=== PATIENT | female | born 1990 | race American Indian/Alaskan Native ===

== ENCOUNTER 2017-04-09 18:32 | Emergency (ER) | payer MEDICAID, OTHER ==
[2017-04-09] MEDS ORDERED: NACL 0.9% 1000 ML 1,000 ML IV ONE (21:52)
[2017-04-09 22:36] LABS: Basophils % (Auto) 0.6 % (0.0-1.8); Eosinophils % (Auto) 0.6 % (0.0-4.3); Hematocrit 42.5 % (30.3-42.9); Hemoglobin 14.5 gm/dl (10.1-14.3); Mean Corpuscular HGB Conc 34 % (30-34); Mean Corpuscular Hemoglobin 32 pg (28-32); Mean Corpuscular Volume 94 fl (79-97); Platelet Count 376 K/mm3 (140-440); Red Blood Count 4.52 M/mm3 (3.65-5.03); Red Cell Distribution Width 12.1 % (13.2-15.2); White Blood Count 7.3 K/mm3 (4.5-11.0)
[2017-04-09 22:56] LABS: Alanine Aminotransferase 9 units/L (7-56); Albumin 4.3 g/dL (3.9-5); Albumin/Globulin Ratio 1.2 %; Alkaline Phosphatase 51 units/L (35-129); Anion Gap 20 mmol/L; Blood Urea Nitrogen 10 mg/dL (7-17); Calcium 9.3 mg/dL (8.4-10.2); Carbon Dioxide 21 mmol/L (22-30); Chloride 99.3 mmol/L (98-107); Glucose 89 mg/dL (65-100); Lipase 17 units/L (13-60); Potassium 3.8 mmol/L (3.6-5.0); Sodium 136 mmol/L (137-145); Total Protein 7.9 g/dL (6.3-8.2)
[2017-04-09 23:09] LABS: Bilirubin,Urine NEG (Negative); Blood,Urine SM (Negative); Ketones,Urine 80 mg/dL (Negative); Leukocyte Esterase,Urine NEG (Negative); Mucus,Urine 3+ /HPF; Nitrite,Urine NEG (Negative)
[2017-04-09] MEDS ORDERED: ZOFRAN IV ONE (23:12)
--- NOTE | 2017-04-09 23:12 | Emergency Department Report ---
ED HPI - General Chief complaint: Nausea/Vomiting/Diarrhea Stated complaint: ,VOMITING AND DIZZY Time Seen by Provider: 04/09/17 23:03 Source: patient, RN notes reviewed Mode of arrival: Ambulatory Limitations: No Limitations - History of Present Illness Initial comments: This is a 26-year-old female, the patient is previously unknown to me, she reports that she is 2, para 1, last menstrual period March 06. Patient reports a past medical history of hyperemesis, reports being seen at another hospital last night, reports having an ultrasound, and states that the ultrasound "showed everything was alright." Presents to the ER with a complaint of nausea, vomiting, weakness, unintentional weight loss. Reports multiple episodes of nonbloody, nonbilious emesis, unintentional weight loss, denies irritated obstructive urinary symptoms, reports her symptoms feel similar to prior episodes of hyperemesis. Patient further reports that her symptoms worsened when she eats, and they decrease with rest. -: Gradual Consistency: constant Improves with: rest Worsens with: eating Associated symptoms: nausea/vomiting, malaise, weakness. denies: vaginal bleeding, vaginal discharge, abdominal pain, dysuria, headache, vision changes Vaginal bleeding: none :: Yes OB History - Previous Pregnancies: hyperemesis Pre-kelvin care: followed by OB (Dr. Shipley) - Related Data Previous Rx's Medication Instructions Recorded Last Taken Type Azithromycin [Zithromax Z-TAMARA] 250 mg PO DAILY #6 tablet 09/29/15 Unknown Rx guaiFENesin/CODEINE [Robitussin AC] 10 ml PO Q6HR PRN #180 ml 09/29/15 Unknown Rx predniSONE [Deltasone] 40 mg PO QDAY #10 tab 09/29/15 Unknown Rx Dibucaine [Nupercainal] 28.4 gm RC QID PRN #1 oint...g. 05/04/16 Unknown Rx Doxylamine/Pyridoxine HCl 1 each PO QHS PRN #30 tablet. 04/10/17 Unknown Rx [Yaron Alexander 10-10 mg Tablet] Kristin Root [Kristin] 250 mg PO QID PRN #30 capsule 04/10/17 Unknown Rx Ondansetron [Zofran Odt] 4 mg PO QID PRN #20 tab.rapdis 04/10/17 Unknown Rx Vit W-Ca,Fe,FA(<1 mg) 1 each PO QDAY #30 tablet 04/10/17 Unknown Rx [ Vitamins] Allergies Allergy/AdvReac Type Severity Reaction Status Date / Time No Known Allergies Allergy Unverified 09/29/15 08:18 ED Review of Systems ROS: Stated complaint: ,VOMITING AND DIZZY Other details as noted in HPI Constitutional: malaise. denies: fever Eyes: denies: vision change ENT: denies: hearing loss Respiratory: denies: cough Cardiovascular: denies: palpitations Gastrointestinal: nausea, vomiting. denies: abdominal pain Genitourinary: denies: urgency, dysuria Musculoskeletal: denies: back pain Neurological: weakness ED Past Medical Hx - Past Medical History Previous Medical History?: Yes Additional medical history: Hyperemesis gravidarum with - Surgical History Past Surgical History?: Yes Additional Surgical History: LEEP, - Social History Smoking Status: Never Smoker Substance Use Type: Non Opiate Pain, Prescribed - Medications Home Medications: Home Medications Medication Instructions Recorded Confirmed Last Taken Type Azithromycin [Zithromax Z-TAMARA] 250 mg PO DAILY #6 tablet 09/29/15 Unknown Rx guaiFENesin/CODEINE [Robitussin AC] 10 ml PO Q6HR PRN #180 ml 09/29/15 Unknown Rx predniSONE [Deltasone] 40 mg PO QDAY #10 tab 09/29/15 Unknown Rx Dibucaine [Nupercainal] 28.4 gm RC QID PRN #1 oint...g. 05/04/16 Unknown Rx Doxylamine/Pyridoxine HCl 1 each PO QHS PRN #30 tablet.dr 04/10/17 Unknown Rx [Diclegis Dr 10-10 mg Tablet] Kristin Root [Kristin] 250 mg PO QID PRN #30 capsule 04/10/17 Unknown Rx Ondansetron [Zofran Odt] 4 mg PO QID PRN #20 tab.rapdis 04/10/17 Unknown Rx Vit W-Ca,Fe,FA(<1 mg) 1 each PO QDAY #30 tablet 04/10/17 Unknown Rx [ Vitamins] ED Physical Exam - General Limitations: No Limitations General appearance: alert, in no apparent distress - Head Head exam: Present: atraumatic, normocephalic - Eye Eye exam: Present: normal appearance, EOMI. Absent: nystagmus - ENT ENT exam: Present: normal exam, normal orophraynx, mucous membranes moist, normal external ear exam - Neck Neck exam: Present: normal inspection, full ROM. Absent: tenderness, meningismus - Respiratory Respiratory exam: Present: normal lung sounds bilaterally. Absent: respiratory distress, wheezes, rales, rhonchi, stridor, chest wall tenderness, accessory muscle use, decreased breath sounds, prolonged expiratory - Cardiovascular Cardiovascular Exam: Present: normal rhythm, tachycardia, normal heart sounds. Absent: systolic murmur, diastolic murmur, rubs, gallop - GI/Abdominal GI/Abdominal exam: Present: soft, normal bowel sounds. Absent: distended, tenderness, guarding, rebound, rigid, pulsatile mass - Extremities Exam Extremities exam: Present: normal inspection, full ROM, normal capillary refill. Absent: pedal edema, joint swelling, calf tenderness - Back Exam Back exam: Present: normal inspection, full ROM. Absent: tenderness, CVA tenderness (R), CVA tenderness (L), muscle spasm, paraspinal tenderness, vertebral tenderness - Neurological Exam Neurological exam: Present: alert, oriented X3, other (Extraocular movements intact. Tongue midline. No facial droop. Facial sensation intact to light touch in the V1, V2, V3 distribution bilaterally. 5 and 5 strength in 4 extremities.. Sensation is intact to light touch in 4 extremities.). Absent: motor sensory deficit - Psychiatric Psychiatric exam: Present: normal affect, normal mood - Skin Skin exam: Present: warm, dry, intact, normal color. Absent: rash ED Course Vital Signs 04/09/17 04/09/17 04/10/17 18:41 22:00 01:30 Temperature 99.6 F 98.6 F Pulse Rate 102 H 77 Respiratory 18 16 16 Rate Blood Pressure 104/70 Blood Pressure 112/66 [Right] O2 Sat by Pulse 99 99 99 Oximetry - Reevaluation(s) Reevaluation #1: 04/10/17 01:17 Differential diagnosis: Hyperemesis, dehydration, Assessment and plan: 26-year-old female who endorses unintentional weight loss, endorses nausea and vomiting, urinalysis demonstrates ketones, suggestive of nausea and vomiting of versus hyperemesis. Patient is afebrile, initially tachycardic, this has since resolved. Patient treated aggressively with D5 half-normal, Zofran, Reglan, and pyridoxine. Tachycardia resolved, patient able to tolerate liquid feeds, suitable for discharge at this point in time, she is resting quite comfortably right now, with no active vomiting noted. Patient has been reassessed by myself multiple times while she is here in the department. Reevaluation #2: 04/10/17 01:57 Tachycardia resolved. Patient able to tolerate liquid feeds and oral vitamin B6. Ultrasound confirms intrauterine . Patient will be discharged to follow-up. ED Medical Decision Making - Lab Data Result diagrams: 04/09/17 22:25 04/09/17 22:25 Vital Signs 04/09/17 04/09/17 04/10/17 18:41 22:00 01:30 Temperature 99.6 F 98.6 F Pulse Rate 102 H 77 Respiratory 18 16 16 Rate Blood Pressure 104/70 Blood Pressure 112/66 [Right] O2 Sat by Pulse 99 99 99 Oximetry Lab Results 04/09/17 04/09/17 04/09/17 Range/Units 22:25 22:25 23:27 WBC 7.3 (4.5-11.0) K/mm3 RBC 4.52 (3.65-5.03) M/mm3 Hgb 14.5 H (10.1-14.3) gm/dl Hct 42.5 (30.3-42.9) % MCV 94 (79-97) fl MCH 32 (28-32) pg MCHC 34 (30-34) % RDW 12.1 L (13.2-15.2) % Plt Count 376 (140-440) K/mm3 Lymph % (Auto) 18.4 (13.4-35.0) % Phillips % (Auto) 7.3 (0.0-7.3) % Eos % (Auto) 0.6 (0.0-4.3) % Baso % (Auto) 0.6 (0.0-1.8) % Lymph # 1.4 (1.2-5.4) K/mm3 Phillips # 0.5 (0.0-0.8) K/mm3 Eos # 0.0 (0.0-0.4) K/mm3 Baso # 0.0 (0.0-0.1) K/mm3 Seg Neutrophils % 73.1 H (40.0-70.0) % Seg Neutrophils # 5.4 (1.8-7.7) K/mm3 Sodium 136 L (137-145) mmol/L Potassium 3.8 (3.6-5.0) mmol/L Chloride 99.3 (98-107) mmol/L Carbon Dioxide 21 L (22-30) mmol/L Anion Gap 20 mmol/L BUN 10 (7-17) mg/dL Creatinine 0.5 L (0.7-1.2) mg/dL Estimated GFR > 60 ml/min BUN/Creatinine Ratio 20.00 % Glucose 89 (65-100) mg/dL Calcium 9.3 (8.4-10.2) mg/dL Total Bilirubin 0.70 (0.1-1.2) mg/dL AST 16 (5-40) units/L ALT 9 (7-56) units/L Alkaline Phosphatase 51 (35-129) units/L Total Protein 7.9 (6.3-8.2) g/dL Albumin 4.3 (3.9-5) g/dL Albumin/Globulin Ratio 1.2 % Lipase 17 (13-60) units/L HCG, Quant 35018 H (0-4) mIU/mL Urine Color (Yellow) Urine Turbidity (Clear) Urine pH (5.0-7.0) Ur Specific [place] (1.003-1.030) Urine Protein (Negative) mg/dL Urine Glucose (UA) (Negative) mg/dL Urine Ketones (Negative) mg/dL Urine Blood (Negative) Urine Nitrite (Negative) Urine Bilirubin (Negative) Urine Urobilinogen (<2.0) mg/dL Ur Leukocyte Esterase (Negative) Urine WBC (Auto) (0.0-6.0) /HPF Urine RBC (Auto) (0.0-6.0) /HPF U Epithel Cells (Auto) (0-13.0) /HPF Urine Mucus /HPF 04/09/17 Range/Units Unknown WBC (4.5-11.0) K/mm3 RBC (3.65-5.03) M/mm3 Hgb (10.1-14.3) gm/dl Hct (30.3-42.9) % MCV (79-97) fl MCH (28-32) pg MCHC (30-34) % RDW (13.2-15.2) % Plt Count (140-440) K/mm3 Lymph % (Auto) (13.4-35.0) % Phillips % (Auto) (0.0-7.3) % Eos % (Auto) (0.0-4.3) % Baso % (Auto) (0.0-1.8) % Lymph # (1.2-5.4) K/mm3 Phillips # (0.0-0.8) K/mm3 Eos # (0.0-0.4) K/mm3 Baso # (0.0-0.1) K/mm3 Seg Neutrophils % (40.0-70.0) % Seg Neutrophils # (1.8-7.7) K/mm3 Sodium (137-145) mmol/L Potassium (3.6-5.0) mmol/L Chloride (98-107) mmol/L Carbon Dioxide (22-30) mmol/L Anion Gap mmol/L BUN (7-17) mg/dL Creatinine (0.7-1.2) mg/dL Estimated GFR ml/min BUN/Creatinine Ratio % Glucose (65-100) mg/dL Calcium (8.4-10.2) mg/dL Total Bilirubin (0.1-1.2) mg/dL AST (5-40) units/L ALT (7-56) units/L Alkaline Phosphatase (35-129) units/L Total Protein (6.3-8.2) g/dL Albumin (3.9-5) g/dL Albumin/Globulin Ratio % Lipase (13-60) units/L HCG, Quant (0-4) mIU/mL Urine Color Angela (Yellow) Urine Turbidity Clear (Clear) Urine pH 6.0 (5.0-7.0) Ur Specific [place] 1.032 H (1.003-1.030) Urine Protein 100 mg/dl (Negative) mg/dL Urine Glucose (UA) Neg (Negative) mg/dL Urine Ketones 80 (Negative) mg/dL Urine Blood Sm (Negative) Urine Nitrite Neg (Negative) Urine Bilirubin Neg (Negative) Urine Urobilinogen 4.0 (<2.0) mg/dL Ur Leukocyte Esterase Neg (Negative) Urine WBC (Auto) 1.0 (0.0-6.0) /HPF Urine RBC (Auto) 11.0 (0.0-6.0) /HPF U Epithel Cells (Auto) 4.0 (0-13.0) /HPF Urine Mucus 3+ /HPF - Radiology Data Radiology results: report reviewed, image reviewed Critical care attestation.: If time is entered above; I have spent that time in minutes in the direct care of this critically ill patient, excluding procedure time. ED Disposition Clinical Impression: Nausea and vomiting during Disposition: DC- TO HOME OR SELFCARE Is pt being admited?: No Does the pt Need Aspirin: No Condition: Good Instructions: Hyperemesis Gravidarum (ED) Additional Instructions: Take medications as directed. Follow up with an [facility] doctor within the next week to initiate care. Drink plenty of liquids, avoid consumption of heavy and or spicy foods, and take the nausea medications as directed. Return to the ER right away with fevers, chills, chest pain, shortness of breath, confusion, intractable nausea or vomiting, inability to tolerate liquid feeds, lethargy or irritability. When attempting to eat, start with bland foods, such as bread, rice, apples, toast. Prescriptions: Doxylamine/Pyridoxine HCl [Yaron Alexander 10-10 mg Tablet] 1 each PO QHS PRN #30 tablet. PRN Reason: Nausea Kristin Root [Kristin] 250 mg PO QID PRN #30 capsule PRN Reason: Nausea Ondansetron [Zofran Odt] 4 mg PO QID PRN #20 tab.rapdis PRN Reason: Nausea Vit W-Ca,Fe,FA(<1 mg) [ Vitamins] 1 each PO QDAY #30 tablet Referrals: PRIMARY CARE, [Primary Care Provider] - 3-5 Days [facility] [Provider Group] - 3-5 Days [facility] [Provider Group] - 3-5 Days [facility] [Provider Group] - 3-5 Days
[2017-04-09] MEDS ORDERED: D5/0.45NS 1,000 ML IV SCH (23:45)
[2017-04-10] MEDS ORDERED: REGLAN IV ONE ×2 (00:15→00:44)
[2017-04-10] MEDS ORDERED: VITAMIN B-6 PO ONE (00:38)
[2017-04-10 01:31] VITALS: BP 112/66
--- NOTE | 2017-04-10 01:31 | Ultrasound Report ---
FINAL REPORT PROCEDURE: US OB \T\lt; = 14 WEEKS FETUS TECHNIQUE: Real-time transabdominal sonography of the uterus, placenta, amniotic fluid, adnexa, and fetus was performed with image documentation. Measurements were obtained to determine age/size. M-mode Doppler was used to document heartbeat. CPT 45866 HISTORY: hyperemesis COMPARISON: No prior studies are available for comparison. FINDINGS: There is a gestational sac within the uterus. The gestational sac size is 24 millimeters. This would correspond or approximate gestational age is 7 weeks. There is poor visualization of the gestational sac on this study. No pole yolk sac is identified on this exam. A transabdominal study was performed in this patient. Transvaginal study was not performed due to the patient's wishes. The right ovary is not visualized. The left ovary has a normal size. There is a 22 millimeter simple cyst on the left ovary. No fluid in the lower pelvis. The evaluation is incomplete without the transvaginal imaging. This patient should be followed with serial beta HCG levels and repeat ultrasound within 2 weeks. IMPRESSION: There is an intrauterine . Suboptimal evaluation of the gestational sac on this study as discussed. This patient should be followed with serial beta HCG levels and repeat ultrasound approximately 2 weeks. failure is not excluded on the basis of this study.
== END 2017-04-10 02:15 | disposition home or self-care (01) ==
LOC: ED 18:32
DX: O21.9 Vomiting of pregnancy, unspecified (principal); R11.0 Nausea; Z3A.01 Less than 8 weeks gestation of pregnancy
CPT/HCPCS: 36415; 76801; 80053; 81001; 83690; 84702; 85025; 96361; 96374; 96375; 99284; J2405; J2765; J7030